=== PATIENT | male | born 1960 | race Caucasian/White ===

== ENCOUNTER 2018-03-23 15:05 | Inpatient (IN) | END 2018-03-27 11:50 | disposition home or self-care (01) | DRG 862 ==

== ENCOUNTER 2018-11-04 00:29 | Emergency (ER) | payer OTHER ==
[~2018-11-04] VITALS: Ht 180.3 cm; Wt 118.9 kg
[~2018-11-04 00:29] MED LIST: ACET325T33 PO; AMLO5TAB4 PO; DOXY100T2 PO; FAMO20TA18 PO; LACT1CAP28 PO; Nicotine (14 Mg/24 Hr) TRANSDERM; RISP2TAB3 PO; VENL150C PO
[2018-11-04 00:51] VITALS: Ht 180.3 cm; Wt 118.9 kg
--- NOTE | 2018-11-04 04:05 | ERD ---
ER Documentation Chief Complaint Chief Complaint HEADACHE ON/OFF X3DAYS; NONCOMPLIANT WITH BP MEDS HPI 58-year-old male with history of hypertension presents with complaint of headache on and off for the past 3 days. States that he has not been compliant with his blood pressure medication. Denies sudden onset, worse headache of l devang, fever, neck stiffness, rash, headache getting worse with change in position, headache initiated by exertion, EUCEDA worse in the morning, EUCEDA waking up patient at night, new neurological deficits, numbness, weakness, vision problems, tenderness to palpation over temporal area, history of trauma, or possibility of CO2 poisoning. ROS All systems reviewed and are negative except as per history of present illness. Medications Home Meds Active Scripts Doxycycline* (Vibramycin*) 100 Mg Tab, 100 MG PO BID for 10 Days, #20 TAB Prov:KING LUNA MD 03/27/18 Lactobacillus Rhamnosus GG (Culturelle) 1 Each Capsule, 1 CAP PO BID for 10 Days, #20 CAP Prov:KING LUNA MD 03/27/18 Acetaminophen* (Tylenol*) 325 Mg Tablet, 650 MG PO Q6H PRN for PAIN LEVEL 1-3 OR FEVER for 1 Day, TAB Prov:KING LUNA MD 03/27/18 [Nicotine (14 Mg/24 Hr)] 1 PATCH PATCH No Conflict Check, 1 PATCH TRANSDERM DAILY PRN for CONTROL WITHDRAWAL SYMPTOMS for 14 Days Prov:KING LUNA MD 03/27/18 Reported Medications Amlodipine Besylate* (Norvasc*) 5 Mg Tablet, 5 MG PO DAILY, TAB 03/23/18 Famotidine* (Famotidine*) 20 Mg Tablet, 20 MG PO DAILY, #30 TAB 03/23/18 Risperidone* (Risperidone*) 2 Mg Tablet, 2 MG PO DAILY, TAB 03/23/18 Venlafaxine Hcl* (Effexor XR*) 150 Mg Cap.sr.24h, 150 MG PO DAILY, CAP 03/23/18 Allergies Allergies: Coded Allergies: No Known Allergy (Unverified , 03/23/18) PMhx/Soc History of Surgery: Yes (ABDOMINAL SX (1990)) Anesthesia Reaction: No Hx Neurological Disorder: No Hx Respiratory Disorders: No Hx Cardiac Disorders: Yes (htn, hld) Hx Psychiatric Problems: No (depression) Hx Miscellaneous Medical Probl: No Hx Alcohol Use: Yes Hx Substance Use: No Hx Tobacco Use: Yes Smoking Status: Current every day smoker FmHx Family History: No diabetes, No coronary disease, No other Physical Exam Vitals Vital Signs Date Temp Pulse Resp B/P (MAP) Pulse Ox O2 O2 Flow FiO2 Time Delivery Rate 11/04/18 97.1 83 19 162/95 96 00:51 (117) Physical Exam Const: No acute distress Head: Atraumatic Eyes: Normal Conjunctiva ENT: Normal External Ears, Nose and Mouth. Neck: Full range of motion. No meningismus. Resp: Clear to auscultation bilaterally Cardio: Regular rate and rhythm, no murmurs Abd: Soft, non tender, non distended. Normal bowel sounds Skin: No petechiae or rashes Back: No midline or flank tenderness Ext: No cyanosis, or edema Neur: Awake and alert Psych: Normal Mood and Affect Neuro: M/S: Alert and oriented Face: EOMI, face and pharynx with normal sensation and function Motor: Normal strength throughout Sensation: Normal sensation throughout Speech: Normal Cerebel: Normal coordination Normal gait Normal finger to nose DTR: 2+ and symmetric upper/lower extremities Result Diagram: 11/04/18 0256 11/04/18 0256 Results 24 hrs Laboratory Tests Test 11/04/18 02:56 White Blood Count 8.3 10^3/ul Red Blood Count 4.97 10^6/ul Hemoglobin 15.1 g/dl Hematocrit 44.6 % Mean Corpuscular Volume 89.7 fl Mean Corpuscular Hemoglobin 30.4 pg Mean Corpuscular Hemoglobin Concent 33.9 g/dl Red Cell Distribution Width 13.0 % Platelet Count 226 10^3/UL Mean Platelet Volume 9.5 fl Immature Granulocytes % 0.400 % Neutrophils % 64.0 % Lymphocytes % 24.9 % Monocytes % 7.7 % Eosinophils % 2.3 % Basophils % 0.7 % Nucleated Red Blood Cells % 0.0 /100WBC Immature Granulocytes # 0.030 10^3/ul Neutrophils # 5.3 10^3/ul Lymphocytes # 2.1 10^3/ul Monocytes # 0.6 10^3/ul Eosinophils # 0.2 10^3/ul Basophils # 0.1 10^3/ul Nucleated Red Blood Cells # 0.0 10^3/ul Sodium Level 140 mmol/L Potassium Level 3.9 mmol/L Chloride Level 104 mmol/L Carbon Dioxide Level 25 mmol/L Anion Gap 11 Blood Urea Nitrogen 16 mg/dl Creatinine 0.92 mg/dl Est Glomerular Filtrat Rate mL/min > 60 mL/min Glucose Level 125 mg/dl Calcium Level 10.1 mg/dl Total Bilirubin 2.4 mg/dl Direct Bilirubin 0.00 mg/dl Indirect Bilirubin 2.4 mg/dl Aspartate Amino Transf (AST/SGOT) 22 IU/L Alanine Aminotransferase (ALT/SGPT) 28 IU/L Alkaline Phosphatase 65 IU/L Total Protein 8.0 g/dl Albumin 4.6 g/dl Globulin 3.40 g/dl Albumin/Globulin Ratio 1.35 Procedures/MDM MDM: Given patient's history of hypertension and complaint of headache decision was made to do CT. Results are within normal limits. Patient given 0.1 mg of clonidine in the ER. I have low suspicion for hypertensive crisis, intracranial hemorrhage, elevated intracranial pressure, intracranial mass, aneurysm, meningitis, malignant hypertension, giant cell arteritis, carotid dissection, intracranial abscess, cerebral venous thrombosis, CO2 poisoning, or other emergent causes of headache based on patients history and exam. Patient advised to follow-up with his primary care regarding hypertension. Patient agreed to do so. Patient also advised to be compliant with his blood pressure medications. At this time, patient is stable for discharge and outpatient management. I have instructed the patient to follow-up with his/her primary care physician in 1-2 days. I have discussed with the patient the possibility of needing to see a specialist for further workup and imaging studies if symptoms persist. I have instructed the patient to promptly return to the ER for any new or worsening s ymptoms including but not limited to increased pain, fever, nausea, vomiting, weakness or LOC. The patient and/or family expressed understanding of and agreement with this plan. All questions were answered. Home care instructions were provided. DISCLAIMER: Inadvertent spelling and grammatical errors are likely due to EHR/dictation software use and do not reflect on the overall quality of patient care. Also, please note that the electronic time recorded on this note does not necessarily reflect the actual time of the patient encounter. Departure Diagnosis: Primary Impression: Headache Additional Impression: Hypertension Condition: Stable Patient Instructions: Self-Care for Headaches, High Blood Pressure (Hypertension) Additional Instructions: FOLLOW UP WITH YOUR PRIMARY CARE PHYSICIAN TOMORROW.Return to this facility if you are not improving as expected. NATALIE GARCIA Nov 04, 2018 04:05
[2018-11-04 04:30] VITALS: BP 132/76; PULSE 80; RESP 18
== END 2018-11-04 04:31 | disposition home or self-care (01) ==
LOC: FTE 00:29
DX: I10 Essential (primary) hypertension (principal); F17.210 Nicotine dependence, cigarettes, uncomplicated
CPT/HCPCS: 70450; 80053; 85025